=== PATIENT | female | born 1955 | race Caucasian/White ===

== ENCOUNTER 2021-07-30 20:01 | Emergency (ER) | payer MEDICARE, OTHER ==
[~2021-07-30] VITALS: Ht 165.1 cm; Wt 85.7 kg
[~2021-07-30 20:01] MED LIST: ASPIRIN81 MG PO; ATENOLOL50 MG PO; CALCIUM-MAGNES1 EAC7 PO; FISH OIL OMEGA1 EAC1 PO; MEGA MULTI FOR1 EACH PO; NORCO 5-325 TA1 EACH PO; SIMVASTATIN20 MG PO; VITAMIN D32000 UNI1 PO
[2021-07-30] MEDS ORDERED: METOPROLOL SUCC50 MG PO (20:46)
[2021-07-30] MEDS ORDERED: HYDROCODON-ACE1 EA10 PO (22:48)
[2021-07-30] MEDS ORDERED: ZOFRAN4 MG PO (22:48)
== END 2021-07-30 23:05 | disposition home or self-care (01) ==
LOC: ED 20:01
DX: N13.2 Hydronephrosis with renal and ureteral calculous obstruction (principal); G43.909 Migraine, unspecified, not intractable, without status migrainosus; E78.5 Hyperlipidemia, unspecified; Z87.891 Personal history of nicotine dependence; Z88.8 Allergy status to other drugs, medicaments and biological substances; Z88.5 Allergy status to narcotic agent; Z79.899 Other long term (current) drug therapy
CPT/HCPCS: 74176; 80053; 81001; 83690; 85025; 96374; 96375; 99284-25; A9270; J1170; J1885; J2405; J7030